=== PATIENT | male | born 1970 | race American Indian/Alaskan Native ===

== ENCOUNTER 2019-09-14 20:11 | Inpatient (IN) | payer BC, OTHER ==
[2019-09-14] MEDS ORDERED: SODIUM CHLORIDE 0.9% 1,000 ML IV STA ×2 (20:33→22:26)
[2019-09-14] MEDS ORDERED: HYDROmorphone 1 MG/ML 1 ML SYRINGE IVP STA (20:34)
[2019-09-14] MEDS ORDERED: ONDANSETRON 4 MG/2 ML VIAL IVP STA (20:34)
[2019-09-14] MEDS ORDERED: CLINDAMYCIN 600 MG in DEXTROSE 5% IN WATER 50 ML IVPB STA ×2 (21:11)
[2019-09-14 21:13] LABS: Basophils # (A) 0.1 k/uL (0-0.2); Basophils % (A) 0 %; Eosinophils # (A) 0.2 k/uL (0-0.7); Eosinophils % (A) 1 %; HCT 48.2 % (39.0-53.0); Lymphocytes # (A) 1.2 k/uL (1.0-4.8); Lymphocytes % (A) 6 %; MCHC 33.2 g/dL (31.0-37.0); MCV 87.5 fL (80.0-100.0); Mean Platelet Volume 9.4; Monocytes # (A) 1.2 k/uL (0-1.0); Monocytes % (A) 6 %; Neutrophils # (A) 17.5 k/uL (1.3-7.7); Neutrophils % (A) 85 %; Platelet Count 154 k/uL (150-450); RBC 5.51 m/uL (4.30-5.90); RDW 12.6 % (11.5-15.5); WBC 20.6 k/uL (3.8-10.6)
[2019-09-14 21:18] LABS: ALT 26 U/L (4-49); AST 30 U/L (17-59); African American GFR (CKD) >90 (>60 ml/min/1.73 sqM); Albumin 4.8 g/dL (3.5-5.0); Alkaline Phosphatase 96 U/L (38-126); Anion Gap 16 mmol/L; Blood Urea Nitrogen 19 mg/dL (9-20); Calcium 9.5 mg/dL (8.4-10.2); Carbon Dioxide 25 mmol/L (22-30); Chloride 96 mmol/L (98-107); Glucose 119 mg/dL (74-99); Non-African American GFR(CKD) >90 (>60 ml/min/1.73 sqM); Potassium 4.1 mmol/L (3.5-5.1); Sodium 137 mmol/L (137-145); Total Bilirubin 0.7 mg/dL (0.2-1.3); Total Protein 8.2 g/dL (6.3-8.2)
--- NOTE | 2019-09-14 21:53 | CT ---
EXAMINATION TYPE: CT soft tissue neck w con DATE OF EXAM: 09/14/2019 COMPARISON: HISTORY: left sided neck pain and swelling. CT DLP: 229.9 mGycm Automated exposure control for dose reduction was used. CONTRAST: Performed with IV Contrast, patient injected with 100 mL of Isovue 300. Multiple axial sections were obtained from the level of aortic arch to the top of the frontal sinuses with intravenous contrast. There is arterial flow in the carotid and vertebral arteries. There is normal contrast opacification of the jugular veins. There are numerous anterior triangle cervical lymph nodes that measure up to 18 x 12 mm. There is enlargement of the left tonsil with effacement of the oropharynx. There is hypoden se area consistent with peritonsillar abscess that measures 1.5 cm in diameter. The subglottic trache a is intact. Epiglottis appears normal. The adenoids appear normal. There is previous anterior fusion surgery at C5-6 and C6-7. There is straightening of the cervical spine and mild kyphotic deformity. The skull base is intact. The parotid glands are symmetric. The submandibular salivary glands are carmelo rly symmetric. There is mild subcutaneous edema over the anterior neck on the left side. The mandibul ar ring is intact. Maxilla is intact. There is no evidence of orbital mass. The bony orbits appear in tact. Nasal bone is intact. IMPRESSION: Soft tissue swelling on the left side involving the tonsil with peritonsillar abscess and narrowing o f the oropharyngeal airway. Subcutaneous edema and soft tissue swelling on the anterior neck on the left side consistent with samuel lulitis. Numerous bilateral enlarged cervical lymph nodes.
[2019-09-14] MEDS ORDERED: DEXAMETHASONE SOD PHOSPHATE 10 MG/ML 1 ML VIAL IV STA (22:26)
[2019-09-14] MEDS ORDERED: BENZOCAINE SPRAY 1 CAN MUCOUS MEM STA (22:26)
[2019-09-14] MEDS ORDERED: DIAZEPAM 5 MG/ML 2 ML INJ IVP STA (22:26)
[2019-09-14] MEDS ORDERED: KETOROLAC 30 MG/ML 1 ML VIAL IVP STA (22:27)
[2019-09-14] MEDS ORDERED: NALOXONE 0.4 MG/ML 1 ML VIAL IV PRN (23:09)
[2019-09-14] MEDS ORDERED: ONDANSETRON 4 MG/2 ML VIAL IVP PRN (23:09)
--- NOTE | 2019-09-14 23:13 | ED ---
General Adult HPI - General Source: patient, police Mode of arrival: ambulatory Limitations: no limitations <Salma Moore - Last Filed: 09/14/19 23:23> <Charles Perez - Last Filed: 09/14/19 23:31> - General Chief complaint: ENT Stated complaint: Tonsil Swelling Time Seen by Provider: 09/14/19 20:21 - History of Present Illness Initial comments: 48-year-old male patient presents to the emergency department today for evaluation of left-sided throat pain and left-sided neck swelling. Patient states he has had sore throat and pain for the last 3 days. Patient states he initially had fever and chills. Patient states that the swelling in his throat has worsened and he is having difficulty swallowing. Patient states he has been able to eat or drink. Patient states that he has had peritonsillar abscess before and believes this may be happening again. Patient denies any difficulty breathing. Patient denies any recent rash, chest pain, abdominal pain, nausea, vomiting, diarrhea, constipation, back pain, numbness, tingling, dizziness, weakness, hematuria, dysuria, urinary urgency, urinary frequency, headache, visual changes, or any other complaints. (Salma Moore) - Related Data Allergies Allergy/AdvReac Type Severity Reaction Status Date / Time morphine Allergy Rash/Hives Verified 09/14/19 20:16 Penicillins Allergy Rash/Hives Verified 09/14/19 20:16 Review of Systems ROS Other: All systems not noted in ROS Statement are negative. <Salma Moore - Last Filed: 09/14/19 23:23> ROS Other: All systems not noted in ROS Statement are negative. <Charles Perez - Last Filed: 09/14/19 23:31> ROS Statement: Those systems with pertinent positive or pertinent negative responses have been documented in the HPI. Past Medical History Past Medical History: No Reported History History of Any Multi-Drug Resistant Organisms: None Reported Past Surgical History: Hernia Repair, Joint Replacement, Orthopedic Surgery Additional Past Surgical History / Comment(s): lt knee,rt shoulder rt neck Past Psychological History: No Psychological Hx Reported Smoking Status: Current every day smoker Past Alcohol Use History: Occasional Past Drug Use History: Marijuana <Salma Moore - Last Filed: 09/14/19 23:23> General Exam Limitations: no limitations General appearance: alert, in no apparent distress, other (This is a well- developed, well-nourished adult male patient in no acute distress. Vital signs upon presentation are temperature 97.9F, pulse 84, respirations 20, blood pressure 137/94, pulse ox 100% on room air.) Eye exam: Present: normal appearance, PERRL, EOMI. Absent: scleral icterus, conjunctival injection, periorbital swelling ENT exam: Present: mucous membranes moist. Absent: normal oropharynx (There is left tonsillar hypertrophy, erythema, exudate noted. There is displacement of the uvula to the right.) Neck exam: Present: full ROM, lymphadenopathy (Left-sided), other (There is left-sided neck swelling and tenderness). Absent: normal inspection, tenderness, meningismus Respiratory exam: Present: normal lung sounds bilaterally. Absent: respiratory distress, wheezes, rales, rhonchi, stridor Cardiovascular Exam: Present: regular rate, normal rhythm, normal heart sounds. Absent: systolic murmur, diastolic murmur, rubs, gallop, clicks GI/Abdominal exam: Present: soft, normal bowel sounds. Absent: distended, tenderness, guarding, rebound, rigid Neurological exam: Present: alert, oriented X3, CN II-XII intact Psychiatric exam: Present: normal affect, normal mood Skin exam: Present: warm, dry, intact, normal color. Absent: rash <Salma Moore - Last Filed: 09/14/19 23:23> Course Vital Signs 09/14/19 20:12 Temperature 97.9 F Pulse Rate 84 Respiratory 20 Rate Blood Pressure 137/94 O2 Sat by Pulse 100 Oximetry Procedures - Incision & Drainage Consent Obtained: verbal consent Site: oral Sterile Field Used?: No Needle Aspiration Performed?: Yes Irrigation Performed?: Yes I&D Drainage Obtained: Blood Culture Obtained?: No Complications: bleeding Patient Tolerated Procedure: well <Charles Perez - Last Filed: 09/14/19 23:31> Medical Decision Making - Lab Data Result diagrams: 09/14/19 21:00 09/14/19 21:00 - Radiology Data Radiology results: report reviewed, image reviewed <Salma Moore - Last Filed: 09/14/19 23:23> - Lab Data Result diagrams: 09/14/19 21:00 09/14/19 21:00 <Charles Perez - Last Filed: 09/14/19 23:31> - Medical Decision Making 48-year-old male patient presented to the emergency department today for evaluation of left-sided throat pain, swelling, difficulty swallowing. Physical examination did reveal left tonsillar hypertrophy, exudate, erythema, displacement of the uvula to the right. There is also left-sided anterior neck swelling and tenderness. CT was obtained and did reveal left peritonsillar abscess with surrounding cellulitis. Labs reviewed and did reveal elevated white blood cell count at 20,000, elevated lactic acid at 2.2. Patient is currently afebrile and vital signs show no major abnormalities. My attending Dr Philippe Perez was present and did attempt drainage of the abscess which was unsuccessful. Patient will be admitted with IV antibiotics, given penicillin allergy we will give Clindamycin. We will continue decadron every 6 hours. ENT will be consulted. (Salma Moore) - Lab Data Lab Results 09/14/19 09/14/19 09/14/19 Range/Units 20:53 21:00 21:00 WBC 20.6 H (3.8-10.6) k/uL RBC 5.51 (4.30-5.90) m/uL Hgb 16.0 (13.0-17.5) gm/dL Hct 48.2 (39.0-53.0) % MCV 87.5 (80.0-100.0) fL MCH 29.0 (25.0-35.0) pg MCHC 33.2 (31.0-37.0) g/dL RDW 12.6 (11.5-15.5) % Plt Count 154 (150-450) k/uL Neutrophils % 85 % Lymphocytes % 6 % Monocytes % 6 % Eosinophils % 1 % Basophils % 0 % Neutrophils # 17.5 H (1.3-7.7) k/uL Lymphocytes # 1.2 (1.0-4.8) k/uL Monocytes # 1.2 H (0-1.0) k/uL Eosinophils # 0.2 (0-0.7) k/uL Basophils # 0.1 (0-0.2) k/uL Sodium 137 (137-145) mmol/L Potassium 4.1 (3.5-5.1) mmol/L Chloride 96 L (98-107) mmol/L Carbon Dioxide 25 (22-30) mmol/L Anion Gap 16 mmol/L BUN 19 (9-20) mg/dL Creatinine 0.89 (0.66-1.25) mg/dL Est GFR (CKD-EPI)AfAm >90 (>60 ml/min/1.73 sqM) Est GFR (CKD-EPI)NonAf >90 (>60 ml/min/1.73 sqM) Glucose 119 H (74-99) mg/dL Plasma Lactic Acid Rohan 2.2 H* (0.7-2.0) mmol/L Calcium 9.5 (8.4-10.2) mg/dL Total Bilirubin 0.7 (0.2-1.3) mg/dL AST 30 (17-59) U/L ALT 26 (4-49) U/L Alkaline Phosphatase 96 (38-126) U/L Total Protein 8.2 (6.3-8.2) g/dL Albumin 4.8 (3.5-5.0) g/dL Group A Strep Rapid (Negative) 09/14/19 Range/Units 21:00 WBC (3.8-10.6) k/uL RBC (4.30-5.90) m/uL Hgb (13.0-17.5) gm/dL Hct (39.0-53.0) % MCV (80.0-100.0) fL MCH (25.0-35.0) pg MCHC (31.0-37.0) g/dL RDW (11.5-15.5) % Plt Count (150-450) k/uL Neutrophils % % Lymphocytes % % Monocytes % % Eosinophils % % Basophils % % Neutrophils # (1.3-7.7) k/uL Lymphocytes # (1.0-4.8) k/uL Monocytes # (0-1.0) k/uL Eosinophils # (0-0.7) k/uL Basophils # (0-0.2) k/uL Sodium (137-145) mmol/L Potassium (3.5-5.1) mmol/L Chloride (98-107) mmol/L Carbon Dioxide (22-30) mmol/L Anion Gap mmol/L BUN (9-20) mg/dL Creatinine (0.66-1.25) mg/dL Est GFR (CKD-EPI)AfAm (>60 ml/min/1.73 sqM) Est GFR (CKD-EPI)NonAf (>60 ml/min/1.73 sqM) Glucose (74-99) mg/dL Plasma Lactic Acid Rohan (0.7-2.0) mmol/L Calcium (8.4-10.2) mg/dL Total Bilirubin (0.2-1.3) mg/dL AST (17-59) U/L ALT (4-49) U/L Alkaline Phosphatase (38-126) U/L Total Protein (6.3-8.2) g/dL Albumin (3.5-5.0) g/dL Group A Strep Rapid Negative (Negative) - Radiology Data CT soft tissue neck with contrast was obtained. Report is reviewed in its entirety. Impression by Dr. Bowen shows soft tissue swelling on the left side involving the tonsillar peritonsillar abscess and narrowing of the oropharyngeal airway. Subcutaneous edema and soft tissue swelling on the anterior neck and the left side consistent with cellulitis. Numerous bilateral enlarged cervical lymph nodes. (Salma Moore) Disposition Decision to Admit Reason: Admit from EC Decision Date: 09/14/19 Decision Time: 23:13 <Salma Moore - Last Filed: 09/14/19 23:23> <Charles Perez - Last Filed: 09/14/19 23:31> Clinical Impression: Peritonsillar abscess, Cellulitis of pharynx Disposition: ADMITTED IP TO THIS [facility] Condition: Serious Referrals: None,Stated [Primary Care Provider] - 1-2 days
[2019-09-14] MEDS: DEXAMETHASONE SOD PHOSPHATE 10 MG/ML 1 ML VIAL IV SCH (23:53)
[2019-09-15] MEDS: HYDROmorphone 1 MG/ML 1 ML SYRINGE IVP PRN ×3 (01:53→10:31)
[2019-09-15] MEDS: SODIUM CHLORIDE 0.9% 1,000 ML IV SCH ×3 (01:59→20:25)
[2019-09-15] MEDS: CLINDAMYCIN 600 MG in DEXTROSE 5% IN WATER 50 ML IVPB SCH ×8 (05:32→20:25)
[2019-09-15] MEDS: DEXAMETHASONE SOD PHOSPHATE 10 MG/ML 1 ML VIAL IV SCH ×4 (05:33→20:24)
--- NOTE | 2019-09-15 13:40 | P.HPIM ---
History of Present Illness 48-year-old the male presents in came in with compensative from severe throat pain does have significantly swollen left tonsil as was the right tonsil left tonsil is significant with the partially occupying the airway narrowing the a irway. Patient doesn't have any stridor denied any fever chills CT of the neck did not show any deep soft tissue infections patient is ALLERGIC to Unasyn because of which patient was started on clindamycin patient is coming of severe throat. Unable to swallow including drink. ENT services were consulted. Patient's symptoms started the Forteo was a sore throat and sinus congestion. Review of Systems REVIEW OF SYSTEMS: CONSTITUTIONAL: No fever, no malaise, no fatigue. HEENT: No recent visual problems or hearing problems. CARDIOVASCULAR: No chest pain, orthopnea, PND, no palpitations, no syncope. PULMONARY: No shortness of breath, no cough, no hemoptysis. GASTROINTESTINAL: No diarrhea, no nausea, no vomiting, no abdominal pain. NEUROLOGICAL: No headaches, no weakness, no numbness. HEMATOLOGICAL: Denies any bleeding or petechiae. GENITOURINARY: Denies any burning micturition, frequency, or urgency. MUSCULOSKELETAL/RHEUMATOLOGICAL: Denies any joint pain, swelling, or any muscle pain. ENDOCRINE: Denies any polyuria or polydipsia. The rest of the 14-point review of systems is negative. Past Medical History Past Medical History: No Reported History, Asthma, Hypertension, Pneumonia History of Any Multi-Drug Resistant Organisms: None Reported Past Surgical History: Hernia Repair, Joint Replacement, Orthopedic Surgery Additional Past Surgical History / Comment(s): lt knee,rt shoulder rt neck, rt ankle Past Anesthesia/Blood Transfusion Reactions: No Reported Reaction Past Psychological History: No Psychological Hx Reported Smoking Status: Current every day smoker Past Alcohol Use History: Occasional Past Drug Use History: Marijuana - Past Family History Mother Family Medical History: Cancer Father Family Medical History: Cancer Medications and Allergies Home Medications Medication Instructions Recorded Confirmed Type Clindamycin HCl 300 mg PO TID 09/15/19 09/15/19 History Ibuprofen [Motrin] 600 mg PO BID PRN 09/15/19 09/15/19 History Allergies Allergy/AdvReac Type Severity Reaction Status Date / Time morphine Allergy Rash/Hives Verified 09/15/19 11:34 Penicillins Allergy Rash/Hives Verified 09/15/19 11:34 Physical Exam Vitals: Vital Signs Temp Pulse Pulse Resp BP BP Pulse Ox 09/15/19 07:00 97.5 F L 71 16 106/71 95 09/15/19 00:46 98.1 F 79 16 122/78 96 09/14/19 20:12 97.9 F 84 20 137/94 100 Intake and Output 09/14/19 09/15/19 09/15/19 22:59 06:59 14:59 Other: # Voids 2 Weight 77.111 kg 77.111 kg PHYSICAL EXAMINATION: GENERAL: The patient is alert and oriented x3, not in any acute distress. Well developed, well nourished. HEENT: Pupils are round and equally reacting to light. EOMI. No scleral icterus. No conjunctival pallor. Normocephalic, atraumatic. Left tonsil is significant is swollen with abscess redness in the posterior pharyngeal wall and tonsillar is occupying most of the left airway CARDIOVASCULAR: S1 and S2 present. No murmurs, rubs, or gallops. PULMONARY: Chest is clear to auscultation, no wheezing or crackles. ABDOMEN: Soft, nontender, nondistended, normoactive bowel sounds. No palpable organomegaly. MUSCULOSKELETAL: No joint swelling or deformity. EXTREMITIES: No cyanosis, clubbing, or pedal edema. NEUROLOGICAL: Gross neurological examination did not reveal any focal deficits. SKIN: No rashes. Results CBC & Chem 7: 09/14/19 21:00 09/14/19 21:00 Labs: Abnormal Lab Results - Last 24 Hours (Table) 09/14/19 09/14/19 09/14/19 Range/Units 20:53 21:00 21:00 WBC 20.6 H (3.8-10.6) k/uL Neutrophils # 17.5 H (1.3-7.7) k/uL Monocytes # 1.2 H (0-1.0) k/uL Chloride 96 L (98-107) mmol/L Glucose 119 H (74-99) mg/dL Plasma Lactic Acid Rohan 2.2 H* (0.7-2.0) mmol/L Microbiology - Last 24 Hours (Table) 09/14/19 21:00 Group A Strep Throat Culture - Preliminary Throat Thrombosis Risk Factor Assmnt - Choose All That Apply Each Factor Represents 1 point: Age 41-60 years Thrombosis Risk Factor Assessment Total Risk Factor Score: 1 Thrombosis Risk Factor Assessment Level: Low Risk Assessment and Plan Plan: -Tonsillar abscess occupying majority of the left ear with: Patient is on Decadron which will be continued patient on clindamycin ENT was consulted patient may need to abscess drainage and tonsillectomy, probably liquid diet -leukocytosis due to assessment #1 -Possible sepsis secondary to assessment #1 lactic acidosis secondary to assessment #1 patient will continued on IV fluids -DVT prophylaxis early ambulation
[2019-09-15] MEDS: KETOROLAC 30 MG/ML 1 ML VIAL IVP PRN ×2 (16:59→23:09)
[2019-09-15 23:56] VITALS: RESP 18
[2019-09-16 04:35] VITALS: BP 116/72; PULSE 63; TEMP 97.4
[2019-09-16] MEDS: CLINDAMYCIN 600 MG in DEXTROSE 5% IN WATER 50 ML IVPB SCH ×4 (05:34→11:03)
[2019-09-16] MEDS: DEXAMETHASONE SOD PHOSPHATE 10 MG/ML 1 ML VIAL IV SCH ×3 (05:34→11:04)
[2019-09-16] MEDS: SODIUM CHLORIDE 0.9% 1,000 ML IV SCH ×2 (05:36→10:59)
[2019-09-16] MEDS: KETOROLAC 30 MG/ML 1 ML VIAL IVP PRN ×2 (06:12→11:00)
[2019-09-16 10:20] VITALS: BMI 27.4
--- NOTE | 2019-09-16 15:47 | P.DS ---
Providers Date of admission: 09/15/19 15:18 Expected date of discharge: 09/16/19 Attending physician: Miranda Batista Consults: 09/14/19 23:10 Consult Physician Routine Consulting Provider: Chava Cody Consult Reason/Comments: Left peritonsillar abscess Do you want consulting provider notified?: Yes Primary care physician: Stated None Hospital Course: Final diagnosis -Tonsillar abscess occupying majority of the left tonsillar area -leukocytosis due to assessment #1 -Possible sepsis secondary to assessment #1 lactic acidosis secondary to assessment #1 -DVT prophylaxis Discharge disposition Patient is being discharged in a stable condition with guarded prognosis back to [facility] and will follow-up with ENT Dr. Cody in the outpatient setting upon discharge. Patient will continue on oral antibiotics in the form of clindamycin along with Decadron taper. Total time taken is 35 minutes. History of present illness 48-year-old the male presents in came in with compensative from severe throat pain does have significantly swollen left tonsil as was the right tonsil left tonsil is significant with the partially occupying the airway narrowing the airway. Patient doesn't have any stridor denied any fever chills CT of the neck did not show any deep soft tissue infections patient is ALLERGIC to Unasyn because of which patient was started on clindamycin patient is coming of severe throat. Unable to swallow including drink. ENT services were consulted. Patient's symptoms started the Forteo was a sore throat and sinus congestion. I&D of the Abscess of the left tonsil was done in the ER. 09/16/2019 Patient is seen in follow-up today and is feeling better. Patient continues to have some pharyngeal swelling although he states it has improved and he is having no difficulties in swallowing or breathing at this time. Patient states that he does have enlarged glands normally. Patient will continue on oral antibiotics in the form of clindamycin along with the Decadron taper and will be following up with ENT for reevaluation in the outpatient setting. No reports of chest pain, shortness of breath, or palpitations. Patient is afebrile. No reports of nausea or vomiting and patient is tolerating diet. On exam vital signs are stable. Temp is 97.4 F, pulse is 63, respirations are 18, blood pressure is 116/72, oxygen saturation is 99 % on room air. Cardio S1, S2 are present. Respiratory shows clear to auscultation with no wheezing or rhonchi noted. Abdomen is soft, and nontender. Nervous system shows no focal deficits. Please refer to medication reconciliation sheet for a list of medications. Patient Condition at Discharge: Stable Plan - Discharge Summary Discharge Rx Participant: No New Discharge Prescriptions: New Clindamycin [Cleocin] 600 mg PO TID #84 cap Dexamethasone [Decadron] 4 mg PO TID #20 tablet Continue Ibuprofen [Motrin] 600 mg PO BID PRN PRN Reason: Pain Discontinued Clindamycin HCl 300 mg PO TID Discharge Medication List Ibuprofen [Motrin] 600 mg PO BID PRN 09/15/19 [History] Clindamycin [Cleocin] 600 mg PO TID #84 cap 09/16/19 [Rx] Dexamethasone [Decadron] 4 mg PO TID #20 tablet 09/16/19 [Rx] Follow up Appointment(s)/Referral(s): None,Stated [Primary Care Provider] - 1-2 days Chava Cody MD [STAFF PHYSICIAN] - 1 Week (Please call to make follow up appointment) Patient Instructions/Handouts: Peritonsillar Abscess (DC) Activity/Diet/Wound Care/Special Instructions: Activity as tolerated Continue with antibiotics until finished Continue with steroids until finished Follow-up with ENT within one week Continue current diet Discharge Disposition: HOME SELF-CARE
== END 2019-09-16 14:20 | disposition home or self-care (01) | DRG 872 ==
LOC: EC 20:11 → 6NMEDSUR 23:58 → OBSVTOIN 09-15 15:18
PROVIDERS: ADMIT Hospitalist; ATTEND Hospitalist
PROC: 0C9P3ZZ Drainage of Tonsils, Percutaneous Approach (ICD-10-PCS; principal; 2019-09-14)
DX: A41.9 Sepsis, unspecified organism (principal); J36 Peritonsillar abscess; J39.1 Other abscess of pharynx; F17.200 Nicotine dependence, unspecified, uncomplicated; Z88.0 Allergy status to penicillin; Z88.5 Allergy status to narcotic agent; Z96.60 Presence of unspecified orthopedic joint implant; Z80.9 Family history of malignant neoplasm, unspecified
CPT/HCPCS: 10160; 36415; 70491; 80053; 83605; 85025; 87040; 87081; 87430; 96361; 96365; 96375; 99285